=== PATIENT | female | born 1995 | race Caucasian/White ===

== ENCOUNTER 2022-12-08 16:57 | Emergency (ER) | payer OTHER, SELFPAY ==
[2022-12-08 17:10] VITALS: BP 125/85; PULSE 91; RESP 20; TEMP 36.9; O2SAT 98; BMI 21.9
--- NOTE | 2022-12-08 17:35 | EXP.UTC ---
Discharge Plan Disposition Patient Disposition: Home, Self-Care Condition: Good Referrals Follow up/Referrals: Provider,Referral, MD [Primary Care Provider] - See instructions Activity Restrictions/Add. Instructions Additional Instructions/Restrictions: Your testing results should be back in 5-7 days make sure to follow up with your Family Doctor for further evaluation and treatment Call to make appointment with Family Doctor to get further lab work as discussed Return if needed Straight to ER if any life threatening symptoms Clinical Impressions Clinical Impression: Exposure to STD Instructions Patient Instructions: Facts About Sexually Transmitted Infections, How to Detect and Treat STDs, Chlamydia: The Silent STD Discharge ED Provider: Nancy Qu[place]z [facility] [place] General Stated complaint: poss STD Mode of Arrival: Ambulatory Source of Information: Patient Limitations: No Limitations Time Seen by Provider: 12/08/22 17:35 Description of Symptoms (Recalled from Triage Doc. by RN): PATIENT C/O THICK, WHITE VAGINAL DISCHARGE WITH AN ODOR. SHE BELIEVES SHE HAS MULTIPLE STDs BUT NOT SURE WHICH ONES HEENT Symptoms (Recalled from RN notes): No Resp Symptoms (Recalled from RN notes): No Skin Symptoms (Recalled from RN notes): No MS Symptoms (Recalled from RN notes): No Functional Status (Recalled from RN notes): WNL History of Present Illness Provider Complaint: Patient states that she thinks she may have several STD's States that she has been having thick white discharge and sometimes it is watery like and has a strong odor to it, and itching and burning States that she has been in and out of penitentiary and not been checked or treated States that today she was still having symptoms so she came in wanting to get checked not sure what she may have been exposed too Related Data Allergies Allergy/AdvReac Type Severity Reaction Status Date / Time No Known Allergies Allergy Verified 12/08/22 17:20 Worker's Comp Is this a Worker's Comp case?: No [facility] Disclaimer: The information contained in this section may have been updated after the patient was seen, as this information can be updated by other users. Social History Smoking Status: Unknown if ever smoked alcohol intake: never current occupational status: unemployed Travel in the last 8 weeks: None ROS Obtained: Yes All systems reviewed & no additional complaints except as documented and Yes Systems reviewed as appropriate & no additional complaints except as documented Constitutional Constitutional: Reports system reviewed and no additional complaints, except as documented, Reports as per HPI and Denies fever(s) ENT Ears, Nose, Mouth, and Throat: Reports system reviewed and no additional complaints, except as documented and Reports as per HPI Cardiovascular Cardiovascular: Reports system reviewed and no additional complaints, except as documented and Reports as per HPI Respiratory Respiratory: Reports system reviewed and no additional complaints, except as documented and Reports as per HPI Gastrointestinal Gastrointestingal: Reports system reviewed and no additional complaints, except as documented and as per HPI; Denies abdominal pain Genitourinary Female Genitourinary: Reports system reviewed and no additional complaints, except as documented, Reports as per HPI, Reports vaginal discharge, Reports vaginal odor and Reports vaginal pruritus Physical Exam General General appearance: alert and in no apparent distress Respiratory Respiratory exam: Present normal lung sounds bilaterally; Absent respiratory distress or wheezes Cardiovascular Cardiovascular exam: Present regular rate, normal rhythm and normal heart sounds Abdominal Exam Abdominal exam: Present soft and normal bowel sounds; Absent distention or tenderness Neurological Exam Neurological exam: Present alert, oriented X3 and normal gait Medical Decision Making Ej Inquiry Pt receiving controlled substanc
[2022-12-08 17:52] LABS: Microscopic, Urine URINE MICROSCOPIC (MICROSCOPIC)
[2022-12-08 18:11] LABS: Appearance,Urine CLEAR (Clear); Blood, Urine Negative (Negative); Color,Urine DK YELLOW (Yellow); Glucose,Urine (UA) Negative (Negative); Ketones,Urine 1+ (Negative); Leukocyte Esterase,Urine TRACE (Negative); Nitrate,Urine Negative (Negative); Protein,Urine 1+ (Negative); Specific Gravity, Urine >= 1.030 (1.005-1.030)
[2022-12-08 18:13] LABS: Bilirubin,Urine 2+ (Negative)
[2022-12-08 18:25] LABS: Bacteria,Urine 1+ /lpf; RBC,Urine Occasional #/hpf (0-3)
[2022-12-08 19:13] LABS: Urine Pregnancy, HCG Qual. Negative (Negative)
[2022-12-08 19:15] VITALS: BP 125/85; PULSE 91; RESP 20; TEMP 36.9; O2SAT 98
[2022-12-10 22:30] LABS: Neisseria gonorrhoeae, NAA Negative (Negative)
[2022-12-11 02:06] LABS: Trichomonas Vaginalis, NAA Negative
[2022-12-18 21:10] LABS: Hep A Ab, IgM NEGATIVE; Hepatitis B Core Antibody IgM NEGATIVE; Hepatitis B Surface Antigen NEGATIVE; Hepatitis C Antibody REACTIVE
== END 2022-12-08 19:17 | disposition home or self-care (01) ==
PROVIDERS: Emergency Provider Nurse Practitioner
DX: N89.8 Other specified noninflammatory disorders of vagina (principal); Z20.2 Contact with and (suspected) exposure to infections with a predominantly sexual mode of transmission
CPT/HCPCS: 80074; 81001; 81025; 87086; 87491; 87591; 87661; 99212; 99213; G0463